=== PATIENT | male | born 1955 | race Caucasian/White ===

== ENCOUNTER 2019-05-30 16:54 | Emergency (ER) | payer BC, MEDICARE, OTHER ==
[~2019-05-30] VITALS: Ht 180.3 cm; Wt 117.0 kg
--- NOTE | 2019-05-30 17:47 | NUR ---
ASSUMED CARE OF PATIENT. REPORTS PATIENT HAS BEEN DROWSY SINCE THIS AM. VS STABLE. BINDER FIXER ON. NO ACUTE DISTRESS NOTED. PT IS A&O X4 BUT DOES FALL ASLEEP DURING QUESTIONS. PT REPORTS HE DOES NOT KNOW WHY HE IS DROWSY. REPORTS PT NO LONGER TAKES HIS PAIN MEDS FOR HIS BACK. CALL LIGHT IN PLACE. WILL CONTINUE TO MONITOR.
[2019-05-30] MEDS ORDERED: NALOXONE 0.4 MG/ML, 1ML ONE ×2 (17:51→19:32)
[2019-05-30] MEDS: NALOXONE 0.4 MG/ML, 1ML IVPush PRN ×2 (17:53→20:02)
--- NOTE | 2019-05-30 17:59 | NUR ---
PATIENTS RESP WERE 9 A MIN. NARCAN GIVEN PER ABDOUL AKERS. PT REPORTS NAUSEA AFTERWARDS. RESP NOW 14. CALL LIGHT IN PLACE. WILL CONTINUE TO MONITOR.
[2019-05-30 18:00] LABS: BASOPHILS # (AUTO) 0.05 x10^3/uL (0-0.1); BASOPHILS % (AUTO) 1 % (0-1); EOSINOPHILS # (AUTO) 0.37 x10^3/uL (0-0.4); EOSINOPHILS % (AUTO) 5 % (1-7); LYMPHOCYTES # (AUTO) 1.95 x10^3/uL (1-3.4); LYMPHOCYTES % (AUTO) 27 % (22-44); MD NO; MEAN CORPUSCULAR HEMOGLOBIN 31.8 pg (27.5-34.5); MEAN CORPUSCULAR HGB CONC 32.7 g/dL (33.2-36.2); MEAN CORPUSCULAR VOLUME 97.4 fL (81-97); MEAN PLATELET VOLUME 7.5 fL (7.4-10.4); MONOCYTES # (AUTO) 0.85 x10^3/uL (0.2-0.8); MONOCYTES % (AUTO) 12 % (2-9); NEUTROPHILS % (AUTO) 56 % (42-75); PLATELET COUNT 183 x10^3/uL (130-400); RED BLOOD COUNT 4.46 x10^6/uL (4.38-5.82); RED CELL DISTRIBUTION WIDTH 14.2 % (9.4-14.8)
[2019-05-30] MEDS ORDERED: PLEASE ENTER ALLERGIES MC SCH (18:00)
[2019-05-30] MEDS ORDERED: SODIUM CHLORIDE FLUSH 10ML SYR IVF ONE (18:00)
--- NOTE | 2019-05-30 18:01 | NUR ---
WENT HOME. UNABLE TO OBTAIN HOME MEDS AT THIS TIME.
[2019-05-30 18:05] LABS: ALANINE AMINOTRANSFERASE 26 U/L (12-78); ALBUMIN 3.4 g/dL (3.4-5.0); ANION GAP 2 mmol/L (5-15); CALCIUM 8.6 mg/dL (8.5-10.1); CHLORIDE 104 mmol/L (98-107); CREATININE 1.03 mg/dL (0.7-1.3)
[2019-05-30 18:20] LABS: ALKALINE PHOSPHATASE 99 U/L (45-117); TOTAL PROTEIN 6.7 g/dL (6.4-8.2); TROPONIN I < 0.015 ng/mL (0.000-0.045)
--- NOTE | 2019-05-30 18:20 | NUR ---
PT BACK FROM CT. VS STABLE. PT IS MORE ALERT. CALL LIGHT IN PLACE. WILL CONTINUE TO MONITOR.
[2019-05-30 18:21] LABS: BILIRUBIN,TOTAL < 0.1 mg/dL (0.2-1.0)
--- NOTE | 2019-05-30 18:36 | NUR ---
PT RESTING IN ROOM WITH EYES CLOSED. REGULAR RESP. NO ACUTE DISTRESS NOTED. RUBBER TILE FLOOR LAYER ON. NSR NOTED. CALL LIGHT IN PLACE. WILL CONTINUE TO MONITOR.
--- NOTE | 2019-05-30 19:05 | NUR ---
REPORT RECEIVED FROM RONNA ALMENDAREZ. PT RESTING ON GURNEY ALERT AND AOX4. FAMILY BACK AT BS FOR SUPPORT.
--- NOTE | 2019-05-30 19:16 | NUR ---
PT CONTINUES TO REFUSE UA AT THIS TIME.
--- NOTE | 2019-05-30 19:16 | NUR ---
PT SPOUSE TEARFUL STATES "I KNOW HE TOOK THOSE MEDS, I JUST STARTED LOCKING THEM UP, BUT HE WAS BETTER" "HE DIDNT REALLY HAVE A PROBLEM". PT AFFIRMS TAKING PERCOCET 7.5MG TONIGHT, REPORTS TAKING MORE THAN ONE BUT IS UNSURE OF HOW MANY. SPOUSE CONTINUES TO REPORT "THIS IS SO HARD ON ME, ITS HARD ON MY MARRIAGE, ITS SO BAD THAT HE PUT ME THROUGH THIS" "I JUST HAVE TO LEAVE, I WANT TO GO HOME ITS SO HARD ON ME" "I GUESS ILL PICK HIM UP LATER".
[2019-05-30] MEDS ORDERED: METF500T17 PO (19:27)
[2019-05-30] MEDS ORDERED: ATOR-2 PO (19:27)
[2019-05-30] MEDS ORDERED: LISI-167 PO (19:27)
[2019-05-30] MEDS ORDERED: CYCL-259 PO (19:27)
[2019-05-30] MEDS ORDERED: CETI-158 PO (19:27)
[2019-05-30] MEDS ORDERED: GABA300C10 PO (19:27)
[2019-05-30] MEDS ORDERED: CYAN500L4 PO (19:27)
[2019-05-30] MEDS ORDERED: ALLO300T PO (19:27)
[2019-05-30] MEDS ORDERED: GLIP5TAB10 PO (19:27)
[2019-05-30] MEDS ORDERED: CHOL10003 PO (19:27)
--- NOTE | 2019-05-30 19:55 | NUR ---
THIS RN ATTEMPTED STRAIGHT CATH ON PT. INSUFFICIENT URINE FOR SAMPLE AT THIS TIME.
[2019-05-30] MEDS ORDERED: SODIUM CHLORIDE 0.9% 1,000ML IVBOLUS ONE (20:30)
--- NOTE | 2019-05-30 21:10 | NUR ---
PT ATTEMPTING TO PROVIDE UA AT THIS TIME.
--- NOTE | 2019-05-30 22:17 | NUR ---
PT RESTING ON GURNEY WITH EYES CLOSED, RESPIRATIONS EVEN AND NONLABORED. CALL LIGHT WITHIN REACH, MONITORING IN PLACE.
[2019-05-30 22:39] LABS: MICROSCOPIC NOT IND
[2019-05-30 22:44] LABS: CULTURE INDICATED? NO
[2019-05-30 23:20] LABS: AMPHETAMINE SCREEN, URINE Negative (Negative); BARBITURATE SCREEN, URINE Negative (Negative); BENZODIAZEPINE SCREEN, URINE Positive (Negative); CANNABINOID SCREEN, URINE Negative (Negative); COCAINE SCREEN, URINE Negative (Negative); METHADONE SCREEN, URINE Negative (Negative); OPIATE SCREEN, URINE Positive (Negative)
[2019-05-30 23:22] VITALS: BP 124/98
== END 2019-05-30 23:25 | disposition home or self-care (01) ==
LOC: ED 17:17
DX: R41.82 Altered mental status, unspecified (principal); F11.20 Opioid dependence, uncomplicated; T65.91XA Toxic effect of unspecified substance, accidental (unintentional), initial encounter; Y92.9 Unspecified place or not applicable
CPT/HCPCS: 36415; 70450; 71045; 80053; 80307; 81003; 82962; 84484; 85025; 93005; 96361; 96374; 96376; 99285; J2310; J7030